=== PATIENT | male | born 1955 | race Two or more races ===

== ENCOUNTER 2018-03-25 17:08 | Observation (INO) | payer OTHER ==
[~2018-03-25] VITALS: Ht 175.3 cm; Wt 90.7 kg
[2018-03-25 17:24] VITALS: Ht 175.3 cm; Wt 90.7 kg
[2018-03-25 18:50] LABS: BASOPHIL % 0.4 % (0-2); PLATELET COUNT 192 x10^3mcL (130-400); RED CELL DISTRIBUTION WIDTH 13.4 % (11.5-14.5)
[2018-03-25 18:59] LABS: CALCIUM 9.4 mg/dL (8.5-10.1); CARBON DIOXIDE 27.9 mmol/L (21-32); CHLORIDE SERUM 103 mmol/L (98-107); CREATININE SERUM 0.7 mg/dL (0.7-1.3); GFR1 > 60 mL/min; GLUCOSE SERUM 99 mg/dL (74-106); POTASSIUM SERUM 4.1 mmol/L (3.5-5.1); SODIUM SERUM 137 mmol/L (136-145)
[2018-03-25 20:25] VITALS: BP 167/102
[2018-03-26 03:55] LABS: CALCIUM 9.1 mg/dL (8.5-10.1); CHLORIDE SERUM 107 mmol/L (98-107); CREATININE SERUM 0.8 mg/dL (0.7-1.3); GFR1 > 60 mL/min; GLUCOSE SERUM 111 mg/dL (74-106); POTASSIUM SERUM 4.2 mmol/L (3.5-5.1); SODIUM SERUM 140 mmol/L (136-145)
[2018-03-26 04:11] LABS: CK-MB 1.4 ng/mL (0-3.6)
[2018-03-26 05:14] LABS: BASOPHIL % 0.4 % (0-2); PLATELET COUNT 174 x10^3mcL (130-400); RED CELL DISTRIBUTION WIDTH 13.1 % (11.5-14.5)
[2018-03-26 06:08] VITALS: BP 140/92
[2018-03-26 09:12] VITALS: BP 138/82
[2018-03-26 11:48] LABS: CK-MB 1.1 ng/mL (0-3.6)
[2018-03-26 12:17] VITALS: BP 130/85
[2018-03-26 15:32] VITALS: BP 130/85
== END 2018-03-26 16:37 | disposition home or self-care (01) | DRG 351 ==
LOC: ED 17:08 → DU 19:34
PROVIDERS: Emergency Medicine; Internal Medicine
DX: M19.011 Primary osteoarthritis, right shoulder (principal); I10 Essential (primary) hypertension; I25.10 Atherosclerotic heart disease of native coronary artery without angina pectoris; Z68.27 Body mass index [BMI] 27.0-27.9, adult; Z79.01 Long term (current) use of anticoagulants
CPT/HCPCS: G0378; J1885; J2270; J7030; Q0092

== ENCOUNTER 2020-04-30 09:42 | Emergency (ER) | payer SELFPAY ==
[~2020-04-30] VITALS: Ht 190.5 cm; Wt 90.7 kg
[2020-04-30 10:02] VITALS: Ht 190.5 cm; Wt 90.7 kg
[2020-04-30 10:21] LABS: BASOPHIL % 0.6 % (0-2); PLATELET COUNT 192 x10^3mcL (130-400); RED CELL DISTRIBUTION WIDTH 13.2 % (11.5-14.5)
[2020-04-30 10:42] LABS: CALCIUM 9.6 mg/dL (8.5-10.1); CARBON DIOXIDE 29.1 mmol/L (21-32); CHLORIDE SERUM 104 mmol/L (98-107); CREATININE SERUM 0.8 mg/dL (0.7-1.3); GFR1 > 60 mL/min; GLUCOSE SERUM 93 mg/dL (74-106); POTASSIUM SERUM 4.4 mmol/L (3.5-5.1); SODIUM SERUM 135 mmol/L (136-145)
[2020-04-30 10:46] LABS: ALBUMIN 4.1 g/dL (3.4-5.0); ALKALINE PHOSPHATASE 97 U/L (46-116); ALT/SGPT 56 U/L (16-63); AMYLASE 69 U/L (25-115); AST/SGOT 30 U/L (15-37); BILIRUBIN TOTAL 1.1 mg/dL (0.20-1.00); LIPASE 91 IU/L (73-393); TOTAL PROTEIN, SERUM 7.6 g/dL (6.4-8.2)
[2020-04-30 14:02] VITALS: BP 176/105
== END 2020-04-30 14:02 | disposition home or self-care (01) ==
LOC: ED 09:42
PROVIDERS: Emergency Medicine
DX: R07.89 Other chest pain (principal); M79.601 Pain in right arm; I10 Essential (primary) hypertension; E78.00 Pure hypercholesterolemia, unspecified; E11.9 Type 2 diabetes mellitus without complications; E66.9 Obesity, unspecified; Z20.828 Contact with and (suspected) exposure to other viral communicable diseases
CPT/HCPCS: Q0092